=== PATIENT | male | born 1940 | race Two or more races ===

== ENCOUNTER 2024-03-01 08:42 | Emergency (ER) | payer MEDICAID ==
[~2024-03-01] VITALS: Ht 160 cm; Wt 62.6 kg
[~2024-03-01 08:42] MED LIST: HYDR25TA5 PO; LISI10TA34 PO
[2024-03-01 09:12] LABS: Urine Bacteria None Seen /hpf (None Seen)
[2024-03-01 09:37] LABS: Basophils # (auto) 0 10 ^3/uL (0-0.2); Basophils % (auto) 0.2 % (0.0-2.0); Eosinophils # (auto) 0 10 ^3/uL (0-0.8); Eosinophils % (auto) 0.4 % (0.0-7.0); Hemoglobin 13.9 g/dL (13.5-17.5); Lymphocytes # (auto) 1.2 10 ^3/uL (0.4-5.4); Lymphocytes % (auto) 26.2 % (10.0-50.0); Mean Corpuscular Hemoglobin 32.6 pg (28.0-32.0); Mean Corpuscular Hgb Conc. 35.6 g/dL (32.0-36.0); Mean Corpuscular Volume 91.7 fL (80.0-100.0); Monocytes # (auto) 0.5 10 ^3/uL (0-1.3); Monocytes % (auto) 10.7 % (0.0-12.0); Neutrophils # (auto) 2.9 10 ^3/uL (1.6-8.6); Neutrophils % (auto) 62.5 % (37.0-80.0); Nucleated Red Blood Cells % 0.3 %; Red Blood Cells 4.25 10^6/uL (4.5-5.90); White Blood Cell 4.6 10^3/uL (4.4-10.8)
[2024-03-01 09:38] VITALS: BP 161/90; PULSE 72; RESP 18; O2SAT 98
[2024-03-01 09:52] LABS: Urine Blood Negative /uL (Negative); Urine Clarity Clear (Clear); Urine Color Colorless (Yellow); Urine Protein, UAD Negative (Negative); Urine Specific Gravity 1.008 (1.001-1.035); Urine Urobilinogen Normal (Negative); Urine WBC <1 /hpf (0 - 3)
[2024-03-01] MEDS: SODIUM CHLORIDE 0.9% 1,000 ML IV ONE (09:53)
[2024-03-01 09:58] LABS: Alanine Aminotransferase 25 U/L (7-40); Albumin 4.3 g/dL (3.2-4.8); Alkaline Phosphatase 113 U/L (46-116); Anion Gap 3 (5-15); Aspartate Aminotransferase 53 U/L (13-40); Bilirubin, Total 0.4 mg/dL (0.2-1.0); Calcium 9.1 mg/dL (8.5-10.1); Carbon Dioxide 29 mmol/L (20-30); Chloride 99 mmol/L (98-107); Glucose 98 mg/dL (74-106); Potassium 3.8 mmol/L (3.5-5.1); Sodium 131 mmol/L (136-145); Total Protein 7.3 g/dL (5.7-8.2)
[2024-03-01 10:08] LABS: BUN/Creatinine Ratio 5.4 (10.0-20.0); Blood Urea Nitrogen < 5 mg/dL (9-23)
[2024-03-01] MEDS ORDERED: PANT40TA2 PO (16:02)
== END 2024-03-01 16:03 | disposition left against medical advice (07) ==
LOC: ER 08:42
DX: K29.70 Gastritis, unspecified, without bleeding (principal); I10 Essential (primary) hypertension
CPT/HCPCS: 36415; 74176; 80053; 81001; 84484; 85025; 93005; 96360; 96361; 99284; J7030